=== PATIENT | male | born 1970 | race Caucasian/White ===

== ENCOUNTER 2021-07-26 01:23 | Emergency (ER) | payer MEDICAID ==
[~2021-07-26] VITALS: Ht 170.2 cm; Wt 68.0 kg
[2021-07-26 01:50] VITALS: BP 136/94
--- NOTE | 2021-07-26 01:53 | NUR ---
TO LOBBY A/W BED AMBULATORY
[2021-07-26 05:56] LABS: BASOPHILS % (AUTO) 0.4 % (0.0-2.0); EOSINOPHILS % (AUTO) 0.1 % (0.0-4.0); HEMATOCRIT 43.1 % (36-52); HEMOGLOBIN 14.5 g/dL (12.0-18.0); LYMPHOCYTES # (AUTO) 0.7 K/uL (2.0-11.5); LYMPHOCYTES % (AUTO) 13.3 % (20.5-51.1); MEAN CORPUSCULAR HEMOGLOBIN 29 pg (27-31); MEAN CORPUSCULAR HGB CONC 34 g/dL (33-37); MEAN CORPUSCULAR VOLUME 85.4 fL (80-94); MONOCYTES # (AUTO) 0.3 K/uL (0.8-1.0); MONOCYTES % (AUTO) 6.6 % (1.7-9.3); NEUTROPHILS # (AUTO) 4.1 K/uL (1.8-7.7); NEUTROPHILS % (AUTO) 79.6 % (42.2-75.2); PLATELET COUNT (AUTO) 220 K/uL (140-450); RED BLOOD CELL COUNT(AUTO) 5.05 MIL/uL (4.20-6.10); WHITE BLOOD COUNT (AUTO) 5.1 K/uL (4.8-10.8)
[2021-07-26 06:13] LABS: ANION GAP 10.3 (8-16); CREATININE 0.9 mg/dL (0.6-1.3); POTASSIUM 4.3 mmol/L (3.5-5.1); TOTAL BILIRUBIN 0.4 mg/dL (0.0-1.0)
--- NOTE | 2021-07-26 08:10 | NUR ---
PT REFUSING CATIE SWAB, DR YAP MADE AWARE
--- NOTE | 2021-07-26 08:14 | NUR ---
PATIENT ELOPED FROM FACILITY. DISCHARGE INSTRUCTIONS NOT GIVEN TO PATIENT. DR. YAP NOTIFIED.
== END 2021-07-26 08:14 | disposition left against medical advice (07) ==
LOC: MED 01:23
DX: J18.9 Pneumonia, unspecified organism (principal); R11.0 Nausea
CPT/HCPCS: 36415; 71045; 80053; 84484; 85025; 99284; Q0092

== ENCOUNTER 2023-06-18 18:48 | Emergency (ER) | payer OTHER, MEDICAID ==
[~2023-06-18] VITALS: Ht 170.2 cm; Wt 77.7 kg
[2023-06-18 19:06] VITALS: BP 157/112; PULSE 60; RESP 20; TEMP 97.6; O2SAT 97
[2023-06-18] MEDS: KETOROLAC 30 MG/ML VIAL IM ONE (20:23)
[2023-06-18] MEDS: ONDANSETRON 4 MG ODT PO ONE (20:24)
--- NOTE | 2023-06-18 21:05 | NUR ---
TAKEN TO XRAY
--- NOTE | 2023-06-18 21:15 | NUR ---
BROUGHT BACK FROM [facility] TAKEN TO LOBBY
--- NOTE | 2023-06-18 21:23 | NUR ---
Per [facility] 01 ED RN Dona Mckenzie, pain reassessed and patient stated decrease in pain /.
[2023-06-18] MEDS ORDERED: IBUP-2213 PO (21:35)
[2023-06-18 22:06] VITALS: BP 141/92; PULSE 60; RESP 16; TEMP 98; O2SAT 97
== END 2023-06-18 22:06 | disposition home or self-care (01) ==
LOC: MED 18:48
DX: S93.402A Sprain of unspecified ligament of left ankle, initial encounter (principal); S20.212A Contusion of left front wall of thorax, initial encounter; I10 Essential (primary) hypertension; Z86.73 Personal history of transient ischemic attack (TIA), and cerebral infarction without residual deficits; Z79.1 Long term (current) use of non-steroidal anti-inflammatories (NSAID); V23.49XA Other motorcycle driver injured in collision with car, pick-up truck or van in traffic accident, initial encounter; Y93.89 Activity, other specified; Y92.410 Unspecified street and highway as the place of occurrence of the external cause; Y99.8 Other external cause status
CPT/HCPCS: 71101; 73610; 96372; 99284; J1885; Q0162

== ENCOUNTER 2024-04-26 23:45 | Emergency (ER) | payer MEDICAID ==
[~2024-04-26] VITALS: Ht 167.6 cm; Wt 83.5 kg
[~2024-04-26 23:45] MED LIST: IBUP-2213 PO
[2024-04-26 23:55] VITALS: BP 144/96; PULSE 95; RESP 14; TEMP 97.3; O2SAT 99
[2024-04-27 00:46] VITALS: BP 144/96; PULSE 95; RESP 14; TEMP 97.3; O2SAT 99
[2024-04-27] MEDS: predniSONE 20 MG TAB PO ONE (02:00)
[2024-04-27] MEDS: KETOROLAC 30 MG/ML VIAL IM ONE (02:03)
[2024-04-27] MEDS ORDERED: PRED20TA5 PO (02:22)
[2024-04-27] MEDS ORDERED: METH-1681 PO (02:22)
[2024-04-27] MEDS ORDERED: IBUP-2213 PO (02:22)
== END 2024-04-27 02:26 | disposition home or self-care (01) ==
LOC: MED 23:45
DX: S70.12XA Contusion of left thigh, initial encounter (principal); S80.02XA Contusion of left knee, initial encounter; S74.12XA Injury of femoral nerve at hip and thigh level, left leg, initial encounter; I10 Essential (primary) hypertension; Z86.73 Personal history of transient ischemic attack (TIA), and cerebral infarction without residual deficits; Z79.899 Other long term (current) drug therapy; W18.30XA Fall on same level, unspecified, initial encounter; Y93.89 Activity, other specified; Y92.89 Other specified places as the place of occurrence of the external cause; Y99.8 Other external cause status
CPT/HCPCS: 73552; 73562; 96372; 99284; J1885; J7512